=== PATIENT | female | born 1990 | race Caucasian/White ===

== ENCOUNTER 2024-04-26 17:53 | Emergency (ER) | payer MEDICARE, MEDICAID, SELFPAY ==
[2024-04-26 17:54] VITALS: BP 108/65; PULSE 94; RESP 16; TEMP 36.2; O2SAT 98; BMI 37.5
--- NOTE | 2024-04-26 17:59 | RAD_ITS ---
STUDY: X-RAY - RIGHT KNEE REASON FOR EXAM: Female, 33 years old. INJURY TECHNIQUE: 4 view(s) of the knee. COMPARISON: November 11, 2010 FINDINGS: There is stable postoperative change of the distal femur with multiple screws and anchors on the medial side. There is spurring and heterotopic bone formation. There is stable postoperative change of the proximal tibia screws at the anterior aspect. Normal proximal tibiofibular articulation. There is mild degenerative arthrosis of the medial femorotibial compartment. Normal lateral femorotibial compartment. Normal patellofemoral articulation. The soft tissue structures are unremarkable. RAD/Knee 4 or More Views IMPRESSION: Degenerative and postoperative change. No acute fracture. Electronically Signed: Chad Frank MD at 18:37 EDT ,
--- NOTE | 2024-04-26 19:29 | EDS_ITS ---
HPI History of Present Illness HPI Narrative: Patient presents with right knee injury that occurred today. Patient states she went fishing and slipped in mud. Patient states she twisted her right knee. Patient states she has had multiple surgeries on her right knee. Patient states her pain is dull, aching, and burning. Patient states it is worse with ambulation and with extension. Patient denies any weakness. Patient admits to some tingling around her knee. Patient denies any head injury or loss of c onsciousness. Patient denies any other injuries. Chief Complaint: Lower Extremity Injury Informant: patient Occured/Mechanism Mechanism/Context: Yes fall Onset/Context/Timing Onset: Today Context: Sudden Onset Timing: Continuous Quality of Pain: Dull, Aching and Burning Location: Right knee Worsened by: Ambulation, extension Relieved by: Nothing Associated Symptoms Associated Symptoms: Negative for Parasthesia, Weakness or Loss of Funtion [facility] Medical History (Updated 04/26/24 @ 20:[address] Jon Hoyt DO) Right otitis media Rheumatoid arthritis Anxiety and depression Back problem Arthritis Multiple allergies Home Medications ?Medication ?Instructions ?Recorded ?Last Taken ?Type bupropion HCl 150 mg tablet,12 hr 150 mg PO DAILY 04/30/20 Unknown History sustained-release (Wellbutrin SR) citalopram 40 mg tablet 40 mg PO DAILY 04/30/20 Unknown History Allergy/AdvReac Type Severity Reaction Status Date / Time vancomycin Allergy Severe Unknown Verified 04/26/24 17:56 Family History Other Anxiety Arthritis Breast cancer Cancer History of blood transfusion Hypertension Lung cancer Severe allergy Surgical History (Updated 04/26/24 @ 20:[address] Jon Hoyt DO) Hx of pelvic surgery Hx of tympanostomy tubes History of tonsillectomy and adenoidectomy History of ankle surgery Hx of right knee surgery Social History Smoking Status: Current every day smoker tobacco type: cigarettes additional social history: DOES TAKE IBUPROFEN NEEDED ROS ROS ED Constitutional Constitutional ED: Denies chills or fever(s) Eyes Eyes: Denies blurry vision or change in vision ENT ENT ED: Denies rhinorrhea or sore throat Cardiovascular Cardiovascular: Denies chest pain or palpitations Respiratory/Chest Respiratory/Chest: Denies cough or dyspnea Gastrointestinal Gastrointestinal: Denies nausea or vomiting Genitourinary Genitourinary ED: Denies dysuria or hematuria Musculoskeletal Musculoskeletal: Denies back pain or neck pain Integumentary Denies abscess or rash Neurologic Neurologic: Denies headache(s) or weakness Allergic/Immunologic Allergic/Immunologic ED: Denies mouth swelling or urticaria EXAM Physical Exam Const Vital Signs: 04/26/24 17:54 Temperature 97.2 F L Temperature Source Temporal Pulse Rate 94 Respiratory Rate 16 Blood Pressure 108/65 Blood Pressure Mean 79 Pulse Ox 98 Oxygen Delivery Method Room Air Positive well nourished and well developed General Appearance ED: well developed and NAD HEENT Reports moist mucous membranes normocephalic and atraumatic Neck full ROM and supple Extremity Extremity Narrative: There is tenderness over the anterior aspect of the right knee. There is some mild edema. There is no bony crepitance or step-off noted. There is no joint effusion. There is no erythema or warmth noted. Range of motion was slightly limited in flexion extension of the right knee secondary to pain. Strength is 5/5 bilaterally in the lower extremities. There are no sensory deficits noted. Neuro oriented x3, CN's II-XII intact bilaterally, moves all extremities and no sensory deficits noted Sensorium / Orientation: alert Motor Exam: strength 5/5 throughout Psych mental status grossly normal MDM MDM MDM Narrative Medical decision making narrative: Differential diagnosis includes fracture, sprain, contusion, and internal derangement. X-rays of the right knee will be obtained to assess for fracture and loosening of the hardware. Radiography Diagnostic Testing: Clinical Impression(s) from Imaging Studies Knee X-Ray 04/26/24 17:59 IMPRESSION: Degenerative and postoperative change. No acute fracture. Electronically Signed: Chad Frank MD at 18:37 EDT , X-rays of the right knee were obtained. There are some degenerative changes noted. There is no acute fracture. There is no loosening or fracture of the hardware that is in place. Radiologist also interpreted the x-rays and agrees. Treatment and Re-Evaluation Narrative: Patient was advised of her findings. Patient was instructed to ice and elevate the right knee. Patient was instructed to follow-up with her primary care physician in 5 to 7 days. Patient was instructed to take Tylenol or ibuprofen as needed for pain. Patient understood and was agreeable with the plan. All questions were answered. Discharge Plan Triage Chief Complaint: Lower Extremity Injury ED Provider: Jon Hoyt Dx/Rx/DC Orders Clinical Impression: Right knee sprain, Fall Instructions: ED Knee Sprain Prescriptions: No Action bupropion HCl [Wellbutrin SR] 150 mg tablet sustained-release 12 hr 150 mg PO DAILY citalopram 40 mg tablet 40 mg PO DAILY Primary Care Provider: Suma Del Angel Referrals: Suma Del Angel DO [Primary Care Provider] - 5-7 Days Print Language: Polish Disposition Disposition: Home, Self Care
== END 2024-04-26 20:28 | disposition home or self-care (01) ==
PROVIDERS: Emergency Provider Emergency Medicine; PCP Family Medicine; Visit Provider Emergency Medicine
DX: S83.91XA Sprain of unspecified site of right knee, initial encounter (principal); F17.210 Nicotine dependence, cigarettes, uncomplicated; X58.XXXA Exposure to other specified factors, initial encounter
CPT/HCPCS: 73564; 99282